=== PATIENT | male | born 1980 | race Caucasian/White ===

== ENCOUNTER 2019-12-26 11:20 | Emergency (ER) | payer MEDICAID ==
[~2019-12-26] VITALS: Ht 175.3 cm; Wt 74.5 kg
[2019-12-26 11:33] VITALS: Ht 175.3 cm; Wt 74.5 kg
[2019-12-26] MEDS ORDERED: XANAX2 MG PO (11:36)
[2019-12-26 11:57] LABS: BASOPHILS 0.3 % (0-2); EOSINOPHILS 0.3 % (0-7); HEMATOCRIT 46.8 % (42.0-54.0); HEMOGLOBIN 16.2 g/dL (13.5-17.5); IMMATURE GRANULOCYTES 0.3 % (0-5); LYMPHOCYTES 16.8 % (15-50); MCH 33.1 pg (26.0-34.0); MCHC 34.6 g/dL (31.0-37.0); MCV 95.5 fL (80.0-100.0); MONOCYTES 8.7 % (2-11); NEUTROPHILS 73.6 % (40-80); PLATELET COUNT 284 10x3/uL (130-400); RDW 13.4 % (11.5-14.5)
[2019-12-26 12:04] LABS: CALC OSMOLALITY 270 mosm/kg (275-300); CALCIUM 9.4 mg/dL (8.5-10.1); CHLORIDE - SERUM 101 mmol/L (98-107); GLUCOSE 115 mg/dL (74-106); POTASSIUM - SERUM 3.8 mmol/L (3.5-5.1); SODIUM 136 mmol/L (136-145); UREA NITROGEN 8 mg/dL (7-18); eGFR NON AFRICAN AMERICAN 89 mL/min (90-120)
[2019-12-26 12:04] LABS: BILIRUBIN NEGATIVE (NEGATIVE); GLUCOSE NEGATIVE (NEGATIVE); KETONE NEGATIVE (NEGATIVE); NITRITE NEGATIVE (NEGATIVE); SPECIFIC GRAVITY 1.005 (1.005-1.020); UROBILINOGEN NORMAL (NORMAL)
[2019-12-26 12:08] LABS: UDS - AMPHET NEGATIVE QUAL (NEGATIVE); UDS - BARB NEGATIVE QUAL (NEGATIVE); UDS - BENZO NEGATIVE QUAL (NEGATIVE); UDS - COCAINE NEGATIVE QUAL (NEGATIVE); UDS - OPIATE NEGATIVE QUAL (NEGATIVE); UDS - PCP NEGATIVE QUAL (NEGATIVE); UDS - THC POSITIVE QUAL (NEGATIVE)
[2019-12-26 12:10] LABS: ALBUMIN 4.1 g/dL (3.4-5.0); ALKALINE PHOSPHATASE 73 U/L (30-120); ALT (SGPT) 16 U/L (10-68); MAGNESIUM - SERUM 2.4 mg/dL (1.8-2.4); PROTEIN - SERUM 7.9 g/dL (6.4-8.2)
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
[2019-12-26 16:44] VITALS: BP 154/92
== END 2019-12-26 16:46 ==
LOC: D.ER 11:20
PROVIDERS: Family Medicine
DX: R45.851 Suicidal ideations (principal); F41.9 Anxiety disorder, unspecified; R45.850 Homicidal ideations; F19.10 Other psychoactive substance abuse, uncomplicated; Z91.14 Patient's other noncompliance with medication regimen